=== PATIENT | male | born 1990 | race Caucasian/White ===

== ENCOUNTER → 2020-07-03 10:08 | Outpatient (CLI) | payer BC, SELFPAY ==
--- NOTE | 2020-07-03 10:18 | US_ITS ---
PROCEDURE: US THYROID CLINICAL INDICATION: THYROMEGALY COMPARISON: No exams were available for comparison FINDINGS: Right lobe: 4.6 x 1.4 x 1.6 cm. Left lobe: 3 x 1.3 x 1.5 cm Isthmus: Unremarkable Additional findings: No nodules apparent IMPRESSION: The right lobe is larger than the left however, no discrete nodule or other significant anomalies evident. Dictated by: Jose Antonio Palacios MD 07/03/2020 15:40 Jose Antonio Palacios MD in [place] 07/03/2020 15:40
== END ==
PROVIDERS: PCP Nurse Practitioner Family; Visit Provider Nurse Practitioner Family
DX: E01.0 Iodine-deficiency related diffuse (endemic) goiter (principal)
CPT/HCPCS: 76536

== ENCOUNTER → 2021-11-26 14:54 | Outpatient (CLI) | payer BC, SELFPAY | PROVIDERS: PCP Nurse Practitioner Family; Visit Provider Specialist | DX: G47.33 Obstructive sleep apnea (adult) (pediatric) (principal); G47.19 Other hypersomnia; R06.83 Snoring; E66.9 Obesity, unspecified; Z68.43 Body mass index [BMI] 50.0-59.9, adult | CPT/HCPCS: G0399 ==

== ENCOUNTER → 2023-01-27 10:32 | Outpatient (CLI) | payer BC, SELFPAY ==
[2023-01-27 17:26] LABS: Basophils # 0.1 K/mm3 (0-0.2); Basophils % 0.7 % (0.1-2.0); Eosinophils # 0.1 K/mm3 (0.0-0.4); Eosinophils % 1.5 % (0.1-12.0); Hematocrit 41.5 % (42.0-52.0); Hemoglobin 14.1 g/dL (14.1-18.0); Lymphocytes # 2.4 K/mm3 (0.7-4.5); Lymphocytes % 28.7 % (10-50); Mean Corpuscular HGB Conc 33.9 g/dL (31.8-35.4); Mean Corpuscular Hemoglobin 29.5 pg (27.0-31.2); Mean Platelet Volume 9.2 fl (7.4-10.4); Monocytes # 0.5 K/mm3 (0.1-1.0); Monocytes % 6.2 % (1.7-9.3); Neutrophils # 5.2 K/mm3 (1.8-7.8); Neutrophils % 62.9 % (37.0-80.0); Platelet Count 229 K/mm3 (142-424); Red Blood Count 4.77 M/mm3 (4.60-6.20); Red Cell Distribution Width 13.4 % (11.5-17.5); White Blood Count 8.2 K/mm3 (4.8-10.8)
[2023-01-27 18:11] LABS: Alanine Aminotransferase 100 U/L (12-78); Albumin Level 4.6 g/dl (3.5-5.0); Albumin/Globulin Ratio 1.3 (1.1-1.8); Alkaline Phosphatase 106 U/L (38-126); Anion Gap 12.1 mEq/L (5-15); Aspartate Amino Transferase 59 U/L (17-59); Bilirubin,Total 0.4 mg/dl (0.2-1.3); Blood Urea Nitrogen 15 mg/dl (9-20); Calcium 9.3 mg/dl (8.4-10.2); Carbon Dioxide 25 mmol/L (22.0-30.0); Chloride 104 mmol/L (98-107); Estimated Glomerular Filt Rate 99 ml/min (>60); GFR (African American) 120 ML/MIN (>60); Globulin 3.5 g/dL (1.3-3.2); Glucose 92 mg/dl (74-100); Potassium 4.1 mmoL/L (3.5-5.1); Sodium 137 mmol/L (136-145); Total Protein,Serum 8.1 g/dl (6.3-8.2)
[2023-01-27 18:41] LABS: Thyroid Stimulating Hormone 5.42 uIU/mL (0.465-4.68)
[2023-01-27 19:46] LABS: Hemoglobin A1C 5.9 % (4.0-6.0)
== END ==
LOC: LAB.DROPOF 01-28 10:32
PROVIDERS: PCP Nurse Practitioner Family; Visit Provider Nurse Practitioner Family
DX: R35.0 Frequency of micturition (principal); R39.15 Urgency of urination; R82.90 Unspecified abnormal findings in urine
CPT/HCPCS: 80053; 83036; 84443; 85025; 87086

== ENCOUNTER → 2023-02-01 13:33 | Outpatient (CLI) | payer BC, SELFPAY ==
--- NOTE | 2023-02-01 13:36 | US_ITS ---
FINAL REPORT TECHNIQUE: Ultrasound images of the kidneys and bladder were obtained. CLINICAL HISTORY: . FINDINGS: The right kidney measures 11 cm in length. It is normal in echogenicity. There is no hydronephrosis. Blood flow is identified. The left kidney measures 13 cm in length. It is normal in echogenicity. There is no hydronephrosis. Blood flow is identified The urinary bladder is unremarkable. Spleen is within normal limits. IMPRESSION: No hydronephrosis. Reviewed, Interpreted and Dictated by Luis Eden MD Transcribed by Shena St Authenticated and [facility]
--- NOTE | 2023-02-01 13:36 | US_ITS ---
FINAL REPORT CLINICAL HISTORY: Urinary urgency and frequency FINDINGS: Limited sonographic imaging of the urinary bladder was obtained. Urinary bladder is normal. A tiny amount of postvoid residual is noted. IMPRESSION: Tiny postvoid residual. Reviewed, Interpreted and Dictated by Luis Eden MD Transcribed by Shena St Authenticated and . [facility]
== END ==
LOC: RAD 13:33
PROVIDERS: PCP Nurse Practitioner Family; Visit Provider Nurse Practitioner Family
DX: R35.0 Frequency of micturition (principal); R39.15 Urgency of urination
CPT/HCPCS: 76770; 76857